=== PATIENT | female | born 1975 | race Two or more races ===

== ENCOUNTER 2019-01-28 05:04 | Inpatient (IN) | payer OTHER ==
[~2019-01-28] VITALS: Ht 165.1 cm; Wt 2.7 kg
[2019-01-28] MEDS ORDERED: NIFE60TA3 PO (05:08)
[2019-01-28] MEDS ORDERED: PRENATABS RX T1 EACH PO (05:08)
[2019-01-28] MEDS ORDERED: LOVENOX40 MG/0.4 SUBCUTANEO (05:10)
[2019-01-28] MEDS ORDERED: ZANTAC300 MG PO (05:11)
[2019-01-28] MEDS ORDERED: ASA81 MG PO (05:11)
== END 2019-01-30 13:54 | disposition home or self-care (01) | DRG 783 ==
LOC: LDR 05:04 → OB/GYN 05:04
PROVIDERS: ADMIT Specialist
PROC: 0UL70ZZ Occlusion of Bilateral Fallopian Tubes, Open Approach (ICD-10-PCS; 2019-01-28)
PROC: 4A1HXCZ Monitoring of Products of Conception, Cardiac Rate, External Approach (ICD-10-PCS; 2019-01-28)
PROC: 10D00Z1 Extraction of Products of Conception, Low, Open Approach (ICD-10-PCS; principal; 2019-01-28 07:00)
DX: O82 Encounter for cesarean delivery without indication (principal); O10.42 Pre-existing secondary hypertension complicating childbirth; Z3A.37 37 weeks gestation of pregnancy; Z37.0 Single live birth; Z30.2 Encounter for sterilization

== ENCOUNTER 2019-01-31 07:00 | Day surgery (SDC) | payer OTHER ==
[~2019-01-31 07:00] MED LIST: ASA81 MG PO; LOVENOX40 MG/0.4 SUBCUTANEO; NIFE60TA3 PO; PRENATABS RX T1 EACH PO; ZANTAC300 MG PO
== END 2019-01-31 13:00 | disposition home or self-care (01) ==
LOC: CIR.AMB 07:00
DX: G97.1 Other reaction to spinal and lumbar puncture (principal)